=== PATIENT | male | born 1980 | race African-American/Black ===

== ENCOUNTER 2021-07-06 11:18 | Inpatient (IN) | payer MEDICAID, OTHER ==
[~2021-07-06] VITALS: Ht 182.9 cm; Wt 100.2 kg
[2021-07-06 12:12] LABS: Basophils # (auto) 0 10 ^3/uL (0-0.2); Basophils % (auto) 0.7 % (0.0-2.0); Eosinophils # (auto) 0.2 10 ^3/uL (0-0.8); Eosinophils % (auto) 2.7 % (0.0-7.0); Hematocrit 47.3 % (41.0-53.0); Hemoglobin 15.8 g/dL (13.5-17.5); Lymphocytes # (auto) 1.5 10 ^3/uL (0.4-5.4); Lymphocytes % (auto) 22.2 % (10.0-50.0); Mean Corpuscular Hemoglobin 28.3 pg (28.0-32.0); Mean Corpuscular Hgb Conc. 33.4 g/dL (32.0-36.0); Mean Corpuscular Volume 84.8 fL (80.0-100.0); Monocytes # (auto) 0.4 10 ^3/uL (0-1.3); Neutrophils # (auto) 4.5 10 ^3/uL (1.6-8.6); Neutrophils % (auto) 68.4 % (37.0-80.0); Nucleated Red Blood Cells % 0.1 %; Red Blood Cells 5.58 10^6/uL (4.5-5.90); Red Cell Distribution Width 13.4 % (11.8-14.3); White Blood Cell 6.6 10^3/uL (4.4-10.8)
[2021-07-06 12:28] LABS: Calcium 9.2 mg/dL (8.5-10.1); Chloride 105 mmol/L (98-107); Sodium 138 mmol/L (136-145)
[2021-07-06 12:44] LABS: Alanine Aminotransferase 29 U/L (16-61); Albumin 3.9 g/dL (3.4-5.0); Alkaline Phosphatase 43 U/L (45-117); Anion Gap 6 (5-15); Aspartate Aminotransferase 18 U/L (15-37); BUN/Creatinine Ratio 14.8; Blood Urea Nitrogen 13 mg/dL (7-18); Carbon Dioxide 27 mmol/L (21-32); GFR African American 124 mL/min; GFR Non-African American 102 mL/min; Glucose 119 mg/dL (74-106); Magnesium 2.2 mg/dL (1.6-2.6)
[2021-07-06] MEDS: MORPHINE SULFATE 4 MG/ML SYR/VIAL IV ONE ×2 (13:03→13:19)
[2021-07-06] MEDS: ONDANSETRON HCL 4 MG/2 ML VIAL IV ONE ×2 (13:04→13:19)
[2021-07-06 13:52] LABS: Alcohol, Urine < 3.0 mg/dL (0-10); Amphetamine Screen, Urine NEGATIVE (NEGATIVE); Barbiturate Scree,Urine NEGATIVE (NEGATIVE); Benzodiazephine Screen, Urine NEGATIVE (NEGATIVE); Cannabinoid Screen, Urine POSITIVE (NEGATIVE); Cocaine Screen, Urine NEGATIVE (NEGATIVE); Opiate Scree,Urine NEGATIVE (NEGATIVE); Phencyclidine Screen, Urine NEGATIVE (NEGATIVE)
[2021-07-06] MEDS ORDERED: NITROGLYCERIN 0.4 MG SL TAB SL PRN ×2 (15:00→16:00)
[2021-07-06] MEDS ORDERED: MORPHINE SULFATE INJECTION 2 MG/ML SYRG IV PRN ×2 (15:00→16:00)
[2021-07-06] MEDS ORDERED: KETOROLAC TROMETH 30 MG/ML 1ML VIAL IV ONE (15:45)
[2021-07-06] MEDS ORDERED: IBUP600T27 PO (15:57)
[2021-07-06] MEDS ORDERED: CALC-239 PO (15:57)
[2021-07-06] MEDS ORDERED: NITR0.4S29 SL (15:57)
[2021-07-06] MEDS ORDERED: OMEG100078 PO (15:57)
[2021-07-06] MEDS ORDERED: ECHI80CA PO (15:57)
[2021-07-06] MEDS ORDERED: ASCO500T5 PO (15:58)
[2021-07-06] MEDS ORDERED: LORazepam 0.5 MG TAB PO PRN (16:00)
[2021-07-06] MEDS ORDERED: HYDROcodone-ACET 5/325MG TAB PO PRN (16:00)
[2021-07-06] MEDS ORDERED: ONDANSETRON HCL 4 MG/2 ML VIAL IV PRN (16:00)
[2021-07-06] MEDS ORDERED: ALUM & MAG HYDROX-SIMETH LIQ(MAALOX) 30 ML PO PRN (16:00)
[2021-07-06] MEDS ORDERED: ACETAMINOPHEN 325 MG TAB PO PRN (16:00)
[2021-07-06] MEDS ORDERED: DOCUSATE SOD 100 MG CAP PO PRN (16:00)
[2021-07-06] MEDS ORDERED: ATORVASTATIN 20 MG TAB PO ONE (16:00)
[2021-07-06] MEDS ORDERED: PANTOPRAZOLE 40 MG/10 ML VIAL INJ IV ONE (16:00)
[2021-07-06] MEDS ORDERED: METOPROLOL SUCCINATE XL 50 MG TAB PO ONE (16:00)
[2021-07-06] MEDS ORDERED: ENOXAPARIN SOD 40 MG/0.4 ML SYRINGE SC ONE (16:15)
[2021-07-06] MEDS: SODIUM CHLORIDE 0.9% 1,000 ML IV SCH (17:04)
[2021-07-06 19:16] LABS: Urine Bacteria NONE SEEN /hpf (None Seen); Urine Blood Negative /uL (Negative); Urine Mucus FEW (None Seen); Urine Specific Gravity 1.027 (1.001-1.035); Urine WBC 2 /hpf (0 - 3)
[2021-07-07] MEDS: SODIUM CHLORIDE 0.9% 1,000 ML IV SCH ×2 (05:26→19:09)
[2021-07-07] MEDS ORDERED: ASPirin 81 mg TAB PO ONE (07:00)
[2021-07-07] MEDS ORDERED: ASPirin 81 mg TAB ONE (07:21)
[2021-07-07] MEDS: ASPirin 81 mg TAB PO SCH (07:47)
[2021-07-07] MEDS ORDERED: METOPROLOL SUCCINATE XL 50 MG TAB PO SCH (10:00)
[2021-07-07] MEDS: ENOXAPARIN SOD 40 MG/0.4 ML SYRINGE SC SCH (10:51)
[2021-07-07] MEDS: PANTOPRAZOLE 40 MG/10 ML VIAL INJ IV SCH ×2 (10:51→21:35)
[2021-07-07 20:00] VITALS: BP 102/62
[2021-07-07] MEDS: ATORVASTATIN 20 MG TAB PO SCH (21:35)
[2021-07-07 22:00] VITALS: BP 102/62
[2021-07-08 05:00] VITALS: BP 121/78
[2021-07-08] MEDS: SODIUM CHLORIDE 0.9% 1,000 ML IV SCH (08:00)
[2021-07-08] MEDS: PANTOPRAZOLE 40 MG/10 ML VIAL INJ IV SCH ×2 (08:32→21:39)
[2021-07-08] MEDS: ASPirin 81 mg TAB PO SCH (08:33)
[2021-07-08] MEDS: ENOXAPARIN SOD 40 MG/0.4 ML SYRINGE SC SCH (08:33)
[2021-07-08 09:00] VITALS: BP 133/88
[2021-07-08 13:00] VITALS: BP 127/78
[2021-07-08 17:00] VITALS: BP 135/74
[2021-07-08 20:00] VITALS: BP 130/72
[2021-07-08] MEDS: ATORVASTATIN 20 MG TAB PO SCH (21:39)
[2021-07-08 22:00] VITALS: BP 130/72
[2021-07-09] MEDS: SODIUM CHLORIDE 0.9% 1,000 ML IV SCH ×2 (00:32→10:40)
[2021-07-09 05:00] VITALS: BP 126/71
[2021-07-09 06:20] LABS: Basophils # (auto) 0.1 10 ^3/uL (0-0.2); Basophils % (auto) 0.6 % (0.0-2.0); Eosinophils # (auto) 0.2 10 ^3/uL (0-0.8); Eosinophils % (auto) 1.9 % (0.0-7.0); Hematocrit 46.1 % (41.0-53.0); Hemoglobin 15.1 g/dL (13.5-17.5); Lymphocytes # (auto) 1.1 10 ^3/uL (0.4-5.4); Lymphocytes % (auto) 10.6 % (10.0-50.0); Mean Corpuscular Hemoglobin 27.5 pg (28.0-32.0); Mean Corpuscular Hgb Conc. 32.8 g/dL (32.0-36.0); Mean Corpuscular Volume 83.8 fL (80.0-100.0); Monocytes # (auto) 0.9 10 ^3/uL (0-1.3); Monocytes % (auto) 8.8 % (0.0-12.0); Neutrophils # (auto) 8.1 10 ^3/uL (1.6-8.6); Neutrophils % (auto) 78.1 % (37.0-80.0); Nucleated Red Blood Cells % 0.1 %; Red Cell Distribution Width 13.5 % (11.8-14.3); White Blood Cell 10.4 10^3/uL (4.4-10.8)
[2021-07-09 06:31] LABS: INR 1.07 (0.9-1.15); Partial Thromboplastin Time 27.1 sec (23.6-33.0)
[2021-07-09 06:37] LABS: Calcium 9.3 mg/dL (8.5-10.1); Potassium 4.1 mmol/L (3.5-5.1)
[2021-07-09 06:40] LABS: BUN/Creatinine Ratio 12.8
[2021-07-09] MEDS ORDERED: LIDOCAINE 2%HCL (LOCAL ANESTH.) INJ 20ML MDV ONE (08:30)
[2021-07-09] MEDS ORDERED: fentaNYL CITRATE 100 MCG/2 ML VL ONE (08:42)
[2021-07-09] MEDS ORDERED: MIDAZOLAM HCL 2MG/2ML 2ml VIAL (1mg/ml) ONE ×2 (08:42→09:31)
[2021-07-09] MEDS ORDERED: VANCOMYCIN 1GM/250ML 250 ML IV ONE (08:42)
[2021-07-09] MEDS ORDERED: VANCOMYCIN HCL 1000 MG VL ONE (08:42)
[2021-07-09 09:00] VITALS: BP 129/78
[2021-07-09] MEDS: ASPirin 81 mg TAB PO SCH (11:40)
[2021-07-09] MEDS: PANTOPRAZOLE 40 MG/10 ML VIAL INJ IV SCH (11:40)
[2021-07-09] MEDS ORDERED: IBUP400T22 PO (11:56)
[2021-07-09 13:00] VITALS: BP 131/79
[2021-07-09 16:40] VITALS: BP 130/85
[2021-07-09 19:15] VITALS: BP 130/85
[2021-07-09 22:00] VITALS: BP 134/76
== END 2021-07-09 22:30 | disposition home or self-care (01) | DRG 171 ==
LOC: ER 11:18 → TELE 14:58 → TELE-CENTR 07-07 17:23
PROVIDERS: ADMIT Hospitalist; ATTEND Internal Medicine Nephrology
PROC: 0JH606Z Insertion of Pacemaker, Dual Chamber into Chest Subcutaneous Tissue and Fascia, Open Approach (ICD-10-PCS; principal; 2021-07-09)
PROC: 02H63JZ Insertion of Pacemaker Lead into Right Atrium, Percutaneous Approach (ICD-10-PCS; 2021-07-09)
PROC: 02HK3JZ Insertion of Pacemaker Lead into Right Ventricle, Percutaneous Approach (ICD-10-PCS; 2021-07-09)
DX: I44.1 Atrioventricular block, second degree (principal); E66.9 Obesity, unspecified; K21.9 Gastro-esophageal reflux disease without esophagitis; E78.5 Hyperlipidemia, unspecified; F12.10 Cannabis abuse, uncomplicated; Z20.822 Contact with and (suspected) exposure to COVID-19; R07.89 Other chest pain; I10 Essential (primary) hypertension; Z80.9 Family history of malignant neoplasm, unspecified; Z83.3 Family history of diabetes mellitus; Z68.30 Body mass index [BMI] 30.0-30.9, adult
CPT/HCPCS: 33208; 36415; 71045; 71046; 80048; 80053; 80307; 81001; 83036; 83735; 83880; 84484; 85025; 85379; 85610; 85730; 86850; 86900; 86901; 87040; 87086; 87426; 93005; 93306; 99152; 99153; C1785; C9113; G0378; J1885; J2250; J2405

== ENCOUNTER 2024-02-21 16:11 | Inpatient (IN) | payer MEDICAID ==
[~2024-02-21] VITALS: Ht 182.9 cm; Wt 90.9 kg
[~2024-02-21 16:11] MED LIST: IBUP-1453 PO; NITR0.4S29 SL
[2024-02-21 17:06] LABS: Basophils # (auto) 0.1 10 ^3/uL (0-0.2); Basophils % (auto) 1.1 % (0.0-2.0); Eosinophils # (auto) 0.4 10 ^3/uL (0-0.8); Eosinophils % (auto) 4.1 % (0.0-7.0); Hematocrit 48.7 % (41.0-53.0); Hemoglobin 15.5 g/dL (13.5-17.5); Lymphocytes # (auto) 2.5 10 ^3/uL (0.4-5.4); Lymphocytes % (auto) 29.1 % (10.0-50.0); Mean Corpuscular Hemoglobin 26.7 pg (28.0-32.0); Mean Corpuscular Hgb Conc. 31.9 g/dL (32.0-36.0); Mean Corpuscular Volume 83.8 fL (80.0-100.0); Monocytes # (auto) 0.7 10 ^3/uL (0-1.3); Monocytes % (auto) 8.3 % (0.0-12.0); Neutrophils # (auto) 4.9 10 ^3/uL (1.6-8.6); Neutrophils % (auto) 57.4 % (37.0-80.0); Nucleated Red Blood Cells % 0.1 %; Red Blood Cells 5.81 10^6/uL (4.5-5.90); Red Cell Distribution Width 13.7 % (11.8-14.3); White Blood Cell 8.5 10^3/uL (4.4-10.8)
[2024-02-21 17:23] LABS: INR 1.04 (0.9-1.15); Partial Thromboplastin Time 26.5 SEC (24.5-34.5)
[2024-02-21] MEDS: KETOROLAC TROMETH 60MG/2ML VIAL IM ONE (17:30)
[2024-02-21] MEDS: ASPirin 81 mg TAB PO ONE (17:30)
[2024-02-21 17:32] LABS: Alanine Aminotransferase 22 U/L (7-40); Albumin 4.4 g/dL (3.2-4.8); Alkaline Phosphatase 49 U/L (46-116); Anion Gap 5 (5-15); Aspartate Aminotransferase 15 U/L (13-40); Bilirubin, Total 0.8 mg/dL (0.2-1.0); Blood Urea Nitrogen 13 mg/dL (9-23); Calcium 9.6 mg/dL (8.7-10.4); Carbon Dioxide 29 mmol/L (20-30); Chloride 104 mmol/L (98-107); Glucose 100 mg/dL (74-106); Sodium 138 mmol/L (136-145)
[2024-02-21] MEDS ORDERED: ONDANSETRON HCL 4 MG/2 ML VIAL IV PRN (21:30)
[2024-02-21] MEDS ORDERED: MORPHINE SULFATE INJ 2 MG/ml SYRG IV PRN (21:30)
[2024-02-21] MEDS ORDERED: NITROGLYCERIN 0.4 MG SL TAB SL PRN (21:30)
[2024-02-21] MEDS ORDERED: ACETAMINOPHEN 325 MG TAB PO PRN (21:30)
[2024-02-22 01:07] VITALS: PULSE 69; RESP 16; O2SAT 97
[2024-02-22] MEDS: ATORVASTATIN 20 MG TAB PO SCH (01:15)
[2024-02-22 04:05] LABS: Basophils # (auto) 0.1 10 ^3/uL (0-0.2); Eosinophils # (auto) 0.3 10 ^3/uL (0-0.8); Monocytes # (auto) 0.7 10 ^3/uL (0-1.3)
[2024-02-22 04:07] LABS: Basophils % (auto) 1.1 % (0.0-2.0); Eosinophils % (auto) 3.5 % (0.0-7.0); Hematocrit 46.7 % (41.0-53.0); Hemoglobin 15.3 g/dL (13.5-17.5); Lymphocytes # (auto) 2.1 10 ^3/uL (0.4-5.4); Lymphocytes % (auto) 23.2 % (10.0-50.0); Mean Corpuscular Hemoglobin 27.3 pg (28.0-32.0); Mean Corpuscular Hgb Conc. 32.7 g/dL (32.0-36.0); Mean Corpuscular Volume 83.6 fL (80.0-100.0); Monocytes % (auto) 7.8 % (0.0-12.0); Neutrophils # (auto) 5.8 10 ^3/uL (1.6-8.6); Neutrophils % (auto) 64.4 % (37.0-80.0); Nucleated Red Blood Cells % 0.1 %; Red Blood Cells 5.59 10^6/uL (4.5-5.90); Red Cell Distribution Width 13.8 % (11.8-14.3)
[2024-02-22 04:18] LABS: Urine Bacteria None Seen /hpf (None Seen)
[2024-02-22 04:23] LABS: Alanine Aminotransferase 19 U/L (7-40); Albumin 4.6 g/dL (3.2-4.8); Alkaline Phosphatase 46 U/L (46-116); Anion Gap 4 (5-15); Aspartate Aminotransferase 16 U/L (13-40); BUN/Creatinine Ratio 13.3 (10.0-20.0); Blood Urea Nitrogen 12 mg/dL (9-23); Calcium 9.9 mg/dL (8.7-10.4); Carbon Dioxide 30 mmol/L (20-30); Chloride 104 mmol/L (98-107); Glucose 103 mg/dL (74-106); Potassium 4.5 mmol/L (3.5-5.1); Sodium 138 mmol/L (136-145); Total Protein 7.5 g/dL (5.7-8.2)
[2024-02-22 04:57] LABS: Urine Blood Negative /uL (Negative); Urine Clarity Clear (Clear); Urine Color Yellow (Yellow); Urine Hyaline Cast FEW /lpf (0 - 2); Urine Protein, UAD TRACE (Negative); Urine Urobilinogen Normal (Negative); Urine WBC 1 /hpf (0 - 3)
[2024-02-22 08:00] VITALS: PULSE 66; RESP 16; O2SAT 95
[2024-02-22] MEDS: ASPirin 81 mg TAB PO SCH (10:30)
[2024-02-22 13:01] LABS: LDL Cholesterol 101 mg/dL (< 100); Triglycerides 130 mg/dL (< 150)
[2024-02-22 13:03] LABS: Cholesterol 156 mg/dL (< 200); HDL Cholesterol 44 mg/dL (40-59)
[2024-02-22 14:37] LABS: Amphetamine Screen, Urine Neg (NEGATIVE); Barbiturate Scree,Urine Neg (NEGATIVE); Benzodiazephine Screen, Urine Neg (NEGATIVE); Cocaine Screen, Urine Neg (NEGATIVE)
[2024-02-22 14:38] LABS: Cannabinoid Screen, Urine Neg (NEGATIVE); Opiate Scree,Urine Neg (NEGATIVE); Phencyclidine Screen, Urine Neg (NEGATIVE)
[2024-02-22 15:49] VITALS: BP 115/65; PULSE 65; RESP 16; RESP 18; TEMP 98.9; O2SAT 92
[2024-02-22] MEDS ORDERED: ASPI-325 PO (16:11)
[2024-02-22] MEDS ORDERED: SIMV10TA20 PO (16:12)
[2024-02-22 20:05] VITALS: PULSE 66
[2024-02-22 21:00] VITALS: BP 108/73; PULSE 64; RESP 18; TEMP 97.4; O2SAT 96
[2024-02-23 00:47] VITALS: BP 114/53; PULSE 75; RESP 18; TEMP 97.9; O2SAT 98
[2024-02-23 05:00] VITALS: BP 108/63; PULSE 65; RESP 17; TEMP 97.7; O2SAT 95
[2024-02-23 08:00] VITALS: BP 116/65; PULSE 62; PULSE 79; RESP 16; TEMP 97.7; O2SAT 96
[2024-02-23 12:00] VITALS: BP 116/61; PULSE 71; RESP 16; TEMP 97.7; O2SAT 100
[2024-02-23 17:05] VITALS: TEMP 36.5
== END 2024-02-23 17:43 | disposition home or self-care (01) | DRG 198 ==
LOC: ER 16:11 → TELE 21:27 → TELE-WESTW 02-22 15:49
PROVIDERS: ADMIT Nurse Practitioner; ATTEND Family Medicine
DX: I25.118 Atherosclerotic heart disease of native coronary artery with other forms of angina pectoris (principal); E78.00 Pure hypercholesterolemia, unspecified; E87.5 Hyperkalemia; I10 Essential (primary) hypertension; I25.2 Old myocardial infarction; Z95.0 Presence of cardiac pacemaker; Z87.891 Personal history of nicotine dependence; Z80.8 Family history of malignant neoplasm of other organs or systems
CPT/HCPCS: 36415; 71045; 80053; 80061; 80307; 81001; 84443; 84484; 85025; 85610; 85730; 93005; 93306; G0378; J1885

== ENCOUNTER → 2025-01-16 | Day surgery (SDC) | payer OTHER ==
[~2025-01-16] VITALS: Ht 182.9 cm; Wt 89.8 kg
[~2025-01-16] MED LIST changes: +ASCO1TAB27 PO; +ASPI-325 PO; +CHOL20TA PO; +CODCAP25 OR; +ECHICAP PO; -IBUP-1453 PO; +SIMV10TA20 PO; +ZINC50TA7 PO
--- NOTE | 2025-01-16 10:51 | DVHHP2 ---
GI H&P Pre-Op Assessment Date: 01/16/25 Chief complaint: colon cancer screening HPI: per clinic note Past medical history: per clinic note Past surgical history: per clinic note Family history: per clinic note Physical exam: General: NAD, AAOX3 HEENT: PERRL, no scleral icterus, normal hearing, gums without lesions or bleeding, oropharynx clear without erythema or exudate. Neck: Supple without enlargement of the thyroid, or lymphadenopathy. Chest: Normal size and shape, no tenderness, lung luna clear to auscultation and percussion, nonlabored breathing. Heart: RRR, no murmur Abdomen: non-distended, no tenderness to palpation, +BS, no hepatosplenomegaly Extremities: no edema Neurological: CN II-XII intact, sensation intact in all extremities, 5+ strength in all extremities Skin: No rashes, No jaundice Assessment: - colon cancer screening Plan: - Colonoscopy - Risks (bleeding, infection, perforation, reaction to sedation medications and cardiopulmonary arrest) and benefit of the procedure were explained to patient. Patient agrees to undergo the procedure. BRADLEY YUSUF MD Jan 16, 2025 10:51
--- NOTE | 2025-01-16 11:23 | DVHOP2 ---
Operative Report DATE OF OPERATION: 01/16/25 PROCEDURE: Colonoscopy. PREOPERATIVE INDICATION: The patient is a 44 -year-old male with family history of colon cancer undergoing colonoscopy for colon cancer screening. POSTOPERATIVE DIAGNOSES: 1. Small internal hemorrhoids PROCEDURE PERFORMED BY: Ananda Landers M.D. SCOPE: Olympus videocolonoscope. ASA CLASS: 3 PREOPERATIVE MEDICATIONS: MAC with Dr Tony PROCEDURE IN DETAIL: After obtaining an informed consent, the patient was placed on left lateral decubitus position. He was then sedated with the above medications. A rectal examination was performed that was normal. The colonoscope was then passed through the anus into the rectosigmoid and through the descending, transverse, and ascending colon up to the cecum with visualization of the appendiceal orifice, base of the cecum and the ileocecal valve. No mass or polyp was observed. There were small internal hemorrhoids. The colonoscope was then withdrawn. The patient tolerated the procedure well without difficulty. WITHDRAWAL TIME: 6 minutes QUALITY OF THE PREP: [place] Bowel Prep score: 5 COMPLICATIONS : None SPECIMENS: None DISPOSITION: D/C to home PLAN: 1. Repeat colonoscopy in five years for colon cancer screening. ANANDA LANDERS MD Jan 16, 2025 11:23
--- NOTE | 2025-01-16 11:23 | DVHDS2 ---
Physician Discharge Progress N Final Diagnosis: Small internal hemorrhoids Operations or Procedures: Operations or Procedures Colonoscopy Condition on Discharge: Good Disposition: Home Discharge Instructions: Diet: Regular Activity: No Restrictions, As Tolerated Medications: Resume previous home medications Follow Up Care: Discharge Statement: "Patient was advised to return to the ER or call 911 if any headaches, dizziness, shortness of breath, chest pain, abdominal pain, bleeding, fevers, or worsening of medical condition. Patient was counseled about treatment plan, medications, possible side effects, patientverbalized understanding. All questions were answered to the best of my ability. This discharge took greater then 30 minutes in planning, reviewing documentation , counseling the patient, and discussing with other team members." BRADLEY YUSUF MD Jan 16, 2025 11:23
[2025-01-16 11:24] VITALS: RESP 20; TEMP 99.4; O2SAT 92
[2025-01-16 11:40] VITALS: BP 107/67; PULSE 60; RESP 12; O2SAT 93
== END | disposition home or self-care (01) ==
LOC: GI 09:59
PROVIDERS: ATTEND Internal Medicine Gastroenterology
DX: R10.32 Left lower quadrant pain (principal); K64.8 Other hemorrhoids; I50.9 Heart failure, unspecified; E78.00 Pure hypercholesterolemia, unspecified; Z79.82 Long term (current) use of aspirin; Z79.899 Other long term (current) drug therapy; Z95.0 Presence of cardiac pacemaker; Z80.0 Family history of malignant neoplasm of digestive organs
CPT/HCPCS: 45378; J7030